=== PATIENT | male | born 1995 | race Caucasian/White ===

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

== ENCOUNTER 2017-01-21 22:23 | Emergency (ER) | payer SELFPAY ==
[~2017-01-21] VITALS: Ht 185.4 cm; Wt 75.0 kg
[~2017-01-21 22:23] MED LIST: TYLE325T5 PO
[2017-01-21 22:28] VITALS: BP 136/63
[2017-01-22] MEDS ORDERED: LIDOCAINE 1% MDV 20ML VIAL SC ONE (00:30)
== END 2017-01-22 01:20 | disposition home or self-care (01) ==
LOC: M ED 22:23
DX: S61.210A Laceration without foreign body of right index finger without damage to nail, initial encounter (principal); Z72.0 Tobacco use; W26.0XXA Contact with knife, initial encounter; Y92.513 Shop (commercial) as the place of occurrence of the external cause; Y93.89 Activity, other specified; Y99.9 Unspecified external cause status

== ENCOUNTER 2017-02-28 20:10 | Emergency (ER) | payer MEDICAID, SELFPAY ==
[~2017-02-28] VITALS: Ht 188 cm; Wt 72.7 kg
[2017-02-28 20:11] VITALS: BP 124/68
== END 2017-02-28 22:52 | disposition left against medical advice (07) ==
LOC: M ED 20:10
DX: Z53.21 Procedure and treatment not carried out due to patient leaving prior to being seen by health care provider (principal)

== ENCOUNTER 2017-02-28 22:56 | Emergency (ER) | payer MEDICAID, SELFPAY ==
[~2017-02-28] VITALS: Ht 188 cm; Wt 72.7 kg
[2017-02-28 22:56] VITALS: BP 126/66
== END 2017-03-01 01:00 | disposition left against medical advice (07) ==
LOC: M ED 22:56
DX: Z53.21 Procedure and treatment not carried out due to patient leaving prior to being seen by health care provider (principal)

== ENCOUNTER 2017-03-04 10:22 | Emergency (ER) | payer MEDICAID | END 2017-03-04 11:56 | disposition home or self-care (01) | LOC: M ED 10:22 | DX: Z20.2 Contact with and (suspected) exposure to infections with a predominantly sexual mode of transmission (principal); J18.9 Pneumonia, unspecified organism; F17.200 Nicotine dependence, unspecified, uncomplicated | CPT/HCPCS: 71020 ==

== ENCOUNTER 2017-12-19 15:37 | Emergency (ER) | payer OTHER, MEDICAID | END 2017-12-19 16:42 | disposition home or self-care (01) | LOC: M ED 15:37 | DX: J06.9 Acute upper respiratory infection, unspecified (principal); J45.909 Unspecified asthma, uncomplicated; F17.200 Nicotine dependence, unspecified, uncomplicated; Z88.0 Allergy status to penicillin | CPT/HCPCS: 87880 ==

== ENCOUNTER 2018-04-18 13:12 | Emergency (ER) | payer OTHER ==
[~2018-04-18] VITALS: Ht 182.9 cm; Wt 75.9 kg
[~2018-04-18 13:12] MED LIST changes: +AFRI0.0511; +BENZ200C70 PO; +DOXY100C37 PO
[2018-04-18 13:13] VITALS: BP 141/72
== END 2018-04-18 13:43 | disposition home or self-care (01) ==
LOC: M ED 13:12
DX: F12.10 Cannabis abuse, uncomplicated (principal); J45.909 Unspecified asthma, uncomplicated; F32.9 Major depressive disorder, single episode, unspecified; Z88.0 Allergy status to penicillin

== ENCOUNTER → 2018-04-20 | Outpatient (CLI) | payer OTHER | LOC: M OUTALCOH 12:48 | PROVIDERS: ATTEND Psychiatry & Neurology Psychiatry | DX: Z03.89 Encounter for observation for other suspected diseases and conditions ruled out (principal) ==

== ENCOUNTER → 2018-05-03 | Outpatient (RCR) | payer OTHER | LOC: M OUTALCOH 11:00 | PROVIDERS: ATTEND Psychiatry & Neurology Psychiatry | DX: Z03.89 Encounter for observation for other suspected diseases and conditions ruled out (principal) ==

== ENCOUNTER 2018-05-31 14:28 | Outpatient (RCR) | payer OTHER | END 2018-06-03 | LOC: M OUTALCOH 14:28 | PROVIDERS: ATTEND Psychiatry & Neurology Psychiatry | DX: F12.10 Cannabis abuse, uncomplicated (principal) ==

== ENCOUNTER 2018-08-09 11:17 | Emergency (ER) | payer OTHER ==
[~2018-08-09] VITALS: Ht 185.4 cm; Wt 76.3 kg
[2018-08-09] MEDS ORDERED: KETO10TAB PO (11:47)
[2018-08-09] MEDS ORDERED: CLIN150C14 PO (11:51)
[2018-08-09] MEDS ORDERED: KETOROLAC 30 MG/ML VIAL (J1885) IV ONE (12:00)
[2018-08-09 12:17] VITALS: BP 124/82
== END 2018-08-09 12:43 | disposition home or self-care (01) ==
LOC: M ED 11:17
DX: K02.9 Dental caries, unspecified (principal); K08.89 Other specified disorders of teeth and supporting structures; Z72.0 Tobacco use; Z88.0 Allergy status to penicillin
CPT/HCPCS: 96374; 99283; J1885

== ENCOUNTER 2018-09-24 22:38 | Emergency (ER) | payer OTHER ==
[~2018-09-24] VITALS: Ht 185.4 cm; Wt 88.0 kg
[~2018-09-24 22:38] MED LIST changes: +CLIN150C14 PO; +KETO10TAB PO
[2018-09-24] MEDS ORDERED: ADACEL/BOOSTRIX VACCINE (DIPHTH/PERTUSS/ACELL/TETANUS)0.5ML SYR (90715) IM ONE (23:30)
[2018-09-24 23:42] LABS: HEMATOCRIT 43.4 % (42.0-52.0); HEMOGLOBIN 14.8 g/dl (13.5-17.5); MEAN CORPUSCULAR HEMOGLOBIN 30.3 pg (27.0-33.0); MEAN CORPUSCULAR HGB CONC 34.1 g/dl (32.0-36.5); MEAN CORPUSCULAR VOLUME 88.9 fl (80.0-96.0); PLATELET COUNT, AUTOMATED 209 10^3/uL (150-450); RED BLOOD COUNT 4.88 10^6/uL (4.30-6.10); WHITE BLOOD COUNT 7.3 10^3/uL (4.0-10.0)
[2018-09-25 00:08] LABS: AMPHETAMINES LEVEL URINE NEGATIVE (NEGATIVE); BARBITURATES URINE NEGATIVE (NEGATIVE); BENZODIAZEPINES URINE NEGATIVE (NEGATIVE); CANNABINOIDS URINE POSITIVE (NEGATIVE); COCAINE METABOLITE URINE NEGATIVE (NEGATIVE); METHADONE URINE NEGATIVE (NEGATIVE); OPIATES URINE NEGATIVE (NEGATIVE); PHENCYCLIDINE URINE NEGATIVE (NEGATIVE)
[2018-09-25 00:11] LABS: ACETAMINOPHEN LEVEL < 2.0 UG/ML (10.0-30.0); ALBUMIN 3.9 GM/DL (3.2-5.2); ALT/SGPT 14 U/L (12-78); BILIRUBIN,DIRECT 0.2 MG/DL (0.0-0.2); BILIRUBIN,TOTAL 0.3 MG/DL (0.2-1.0); BLOOD UREA NITROGEN 12 MG/DL (7-18); CALCIUM LEVEL 8.7 MG/DL (8.5-10.1); CARBON DIOXIDE LEVEL 28 MEQ/L (21-32); CHLORIDE LEVEL 112 MEQ/L (98-107); CREATININE FOR GFR 0.89 MG/DL (0.70-1.30); ETHYL ALCOHOL (ETHANOL) < 0.003 % (0.000-0.010); GLOMERULAR FILTRATION RATE > 60.0 (>60); GLUCOSE, FASTING 92 MG/DL (70-100); POTASSIUM SERUM 3.8 MEQ/L (3.5-5.1); SALICYLATE LEVEL 3.6 MG/DL (5.0-30.0); SODIUM LEVEL 144 MEQ/L (136-145); TOTAL PROTEIN 6.4 GM/DL (6.4-8.2)
[2018-09-25 03:23] VITALS: BP 135/60
== END 2018-09-25 03:31 | disposition home or self-care (01) ==
LOC: M ED 22:38
DX: S50.812A Abrasion of left forearm, initial encounter (principal); X78.8XXA Intentional self-harm by other sharp object, initial encounter; Y92.89 Other specified places as the place of occurrence of the external cause; J45.909 Unspecified asthma, uncomplicated; F41.9 Anxiety disorder, unspecified; F33.9 Major depressive disorder, recurrent, unspecified; Z88.0 Allergy status to penicillin; F17.210 Nicotine dependence, cigarettes, uncomplicated
CPT/HCPCS: 36415; 80048; 80076; 80307; 84443; 85027; 90471; 90715; 99284; G0480

== ENCOUNTER 2019-06-16 13:49 | Emergency (ER) | payer MEDICAID, OTHER, SELFPAY ==
[~2019-06-16] VITALS: Ht 185.4 cm; Wt 75.9 kg
[2019-06-16] MEDS ORDERED: NS 1,000 ML IV ONE (14:00)
[2019-06-16] MEDS ORDERED: HALOPERIDOL 5 MG/ML VIAL (J1630) IV ONE (14:00)
[2019-06-16 14:40] VITALS: BP 140/67
== END 2019-06-16 14:42 | disposition home or self-care (01) ==
LOC: M ED 13:49 → EDBD 13:49 → M ED 14:42
DX: F12.288 Cannabis dependence with other cannabis-induced disorder (principal); F33.9 Major depressive disorder, recurrent, unspecified; F41.9 Anxiety disorder, unspecified; Z88.0 Allergy status to penicillin; F17.210 Nicotine dependence, cigarettes, uncomplicated
CPT/HCPCS: 93041; 96361; 96374; 99284; J1630

== ENCOUNTER 2020-01-04 20:24 | Emergency (ER) | payer OTHER, SELFPAY ==
[~2020-01-04] VITALS: Ht 182.9 cm; Wt 70.3 kg
[2020-01-04] MEDS ORDERED: ACETAMINOPHEN 500 MG TAB PO ONE (21:45)
--- NOTE | 2020-01-04 22:32 | REPVR ---
PROCEDURE INFORMATION: Exam: XR Right Scapula Exam date and time: 01/04/2020 9:30 PM Age: 24 years old Clinical indication: Other: Right sided pain, heavy lifting yesterday TECHNIQUE: Imaging protocol: XR Right scapula, complete. COMPARISON: [facility] Chest, 2 view PA, Lat 03/04/2017 10:55 AM FINDINGS: Bones/joints: Normal. Soft tissues: Normal. IMPRESSION: No acute findings. Electronically signed by: Daron Desai On 01/04/2020 22:32:13 PM
[2020-01-04 22:49] VITALS: BP 139/79
== END 2020-01-04 22:50 | disposition home or self-care (01) ==
LOC: M ED 20:24
DX: M25.511 Pain in right shoulder (principal); Z88.0 Allergy status to penicillin; F12.20 Cannabis dependence, uncomplicated

== ENCOUNTER 2023-12-12 19:30 | Emergency (ER) | payer OTHER, SELFPAY ==
[~2023-12-12] VITALS: Ht 185.4 cm; Wt 71.7 kg
[~2023-12-12 19:30] MED LIST changes: -CLIN150C14 PO; +CLIN150C17 PO; +DOXY-441 PO; -DOXY100C37 PO
[2023-12-12 22:28] VITALS: BP 128/77; TEMP 97.6; O2SAT 99
[2023-12-13] MEDS ORDERED: methocarbamoL 500 MG TAB PO ONE (01:15)
[2023-12-13] MEDS ORDERED: ACETAMINOPHEN 500 MG TAB PO ONE (01:15)
[2023-12-13] MEDS ORDERED: ISOVUE-370 76% 100ML VIAL As Ordered ONE (01:18)
== END 2023-12-13 01:36 | disposition left against medical advice (07) ==
LOC: M ED 19:30
DX: M54.6 Pain in thoracic spine (principal); F17.210 Nicotine dependence, cigarettes, uncomplicated; F15.10 Other stimulant abuse, uncomplicated; F10.10 Alcohol abuse, uncomplicated; Z88.0 Allergy status to penicillin; Z53.9 Procedure and treatment not carried out, unspecified reason

== ENCOUNTER 2024-09-24 16:47 | Emergency (ER) | payer OTHER ==
[~2024-09-24] VITALS: Ht 185.4 cm; Wt 74.3 kg
[2024-09-24 17:00] VITALS: TEMP 97
[2024-09-24 17:45] VITALS: BP 128/67; O2SAT 100
[2024-09-24 17:53] LABS: PLATELET COUNT, AUTOMATED 289 10^3/uL (150-450)
[2024-09-24 18:13] LABS: ETHYL ALCOHOL (ETHANOL) < 0.003 % (0.000-0.010)
[2024-09-24 18:14] LABS: ALT/SGPT 19 U/L (7.0-40); AST/SGOT 20 U/L (<34); CALCIUM LEVEL 8.8 MG/DL (8.5-10.1); CARBON DIOXIDE LEVEL 27 MMOL/L (20-31); CHLORIDE LEVEL 106 MMOL/L (98-107); CREATININE FOR GFR 0.76 MG/DL (0.70-1.30); GLOMERULAR FILTRATION RATE > 90.0 (>60); POTASSIUM SERUM 4.0 MMOL/L (3.5-5.1); SALICYLATE LEVEL < 3.0 MG/DL (<30); SODIUM LEVEL 143 MMOL/L (136-145)
== END 2024-09-24 18:01 | disposition left against medical advice (07) ==
LOC: M ED 16:47 → EDBD 16:47 → M ED 18:01
DX: Z53.21 Procedure and treatment not carried out due to patient leaving prior to being seen by health care provider (principal)

== ENCOUNTER 2024-11-09 12:13 | Emergency (ER) | payer OTHER ==
[~2024-11-09] VITALS: Ht 165.1 cm; Wt 70.1 kg
[2024-11-09 12:35] LABS: PLATELET COUNT, AUTOMATED 319 10^3/uL (150-450)
[2024-11-09 12:58] LABS: ETHYL ALCOHOL (ETHANOL) < 0.003 % (0.000-0.010)
[2024-11-09 13:00] LABS: ALT/SGPT 23 U/L (7.0-40); AST/SGOT 19 U/L (<34); CALCIUM LEVEL 9.5 MG/DL (8.5-10.1); CARBON DIOXIDE LEVEL 26 MMOL/L (20-31); CHLORIDE LEVEL 109 MMOL/L (98-107); CREATININE FOR GFR 0.73 MG/DL (0.70-1.30); GLOMERULAR FILTRATION RATE > 90.0 (>60); POTASSIUM SERUM 4.5 MMOL/L (3.5-5.1); SALICYLATE LEVEL < 3.0 MG/DL (<30); SODIUM LEVEL 145 MMOL/L (136-145)
[2024-11-09 15:19] LABS: BARBITURATES URINE NEGATIVE (NEGATIVE); BENZODIAZEPINES URINE NEGATIVE (NEGATIVE); CANNABINOIDS URINE NEGATIVE (NEGATIVE); PHENCYCLIDINE URINE NEGATIVE (NEGATIVE)
[2024-11-09 15:20] LABS: COCAINE METABOLITE URINE NEGATIVE (NEGATIVE); METHADONE URINE NEGATIVE (NEGATIVE); OPIATES URINE NEGATIVE (NEGATIVE)
[2024-11-09 15:21] LABS: AMPHETAMINES LEVEL URINE POSITIVE (NEGATIVE)
[2024-11-09 16:16] VITALS: BP 135/92; TEMP 97.1; O2SAT 100
== END 2024-11-09 16:22 | disposition home or self-care (01) ==
LOC: M ED 12:13
DX: F15.10 Other stimulant abuse, uncomplicated (principal); F32.A Depression, unspecified; F17.210 Nicotine dependence, cigarettes, uncomplicated; F10.10 Alcohol abuse, uncomplicated; Z88.0 Allergy status to penicillin